=== PATIENT | male | born 1980 | race Caucasian/White ===

== ENCOUNTER 2020-01-05 15:52 | Emergency (ER) | payer BC ==
--- NOTE | 2020-01-05 15:55 | EDM.PDOC ---
ED HPI GENERAL MEDICAL PROBLEM - General Chief Complaint: Chest Pain Stated Complaint: chest pain Time Seen by Provider: 01/05/20 15:52 Source of Information: Reports: Patient, Old Records ([facility] chart/EMR), Other (Telephone consultation with Salina Gamboa PA-C, at [facility] with additional faxed limited records) History Limitations: Reports: No Limitations - History of Present Illness INITIAL COMMENTS - FREE TEXT/NARRATIVE: The patient drove himself to the emergency room via private automobile after initial evaluation by his regular provider, Salina Gamboa PA-C, at [facility], who did contact me prior to his arrival to this facility. No medications were given in that clinic prior to his arrival with EKG in that facility showing some possible nonspecific changes with his provider requesting further review in our emergency room. No further blood work , etc. have been conducted to this point. Patient does have a 3 week plus history of a daily 6-8/10 sharp retrosternal chest pain, which does radiate into the mid back and is associated with some dizziness. His symptoms usually last between 2 and 6 hours and are not improved with his daily Prilosec. Symptoms seem to be aggravated by his mask at work with the patient missing work both yesterday and today. The patient denies any chest pressure, heart flutter, orthostasis, orthopnea, diaphoresis, paresthesias, recent decreased exercise tolerance, or any other anginal-type symptoms. No recent history of abdominal pain, heartburn, nausea, diarrhea, melena, gross hematochezia, or any food intolerance, including fatty foods, etc.. He denies any gross hematuria, colic, or other UTI symptoms. The patient also denies any recent fever, cough, wheezing, dyspnea, etc.. Onset: Today, Gradual, Other (As above) Duration: Week(s):, Getting Worse Location: Reports: Chest, Back, Radiates to (As above). Denies: Head, Face, Neck, Abdomen, Upper Extremity, Left, Upper Extremity, Right Quality: Reports: Same as Previous Episode, Sharp Severity: Moderate Improves with: Reports: None Worsens with: Reports: None Context: Reports: Other (As above). Denies: Exercise, Sick Contact, Trauma Associated Symptoms: Reports: Confusion. Denies: Chest Pain, Cough, Diaphoresis , Fever/Chills, Headaches, Loss of Appetite, Malaise, Nausea/Vomiting, Shortness of Breath, Syncope, Weakness Treatments CORE INSERTER: Reports: Other (see below) (None) chest pain Pain Score (Numeric/FACES): 6 - Related Data Allergies Allergy/AdvReac Type Severity Reaction Status Date / Time No Known Allergies Allergy Verified 01/05/20 15:54 Home Meds: Home Meds Rivaroxaban [Xarelto] 20 mg PO DAILY 01/03/16 [History] Omeprazole Magnesium [Prilosec Otc] 20 mg PO DAILY 01/05/20 [History] Past Medical History HEENT History: Reports: Allergic Rhinitis. Denies: Cataract, Glaucoma, Hard of Hearing, Impaired Vision, Macular Degeneration, Otitis Media, Retinal Detachment Cardiovascular History: Reports: Blood Clots/VTE/DVT, Other (See Below). Denies : Afib, Arrhythmia, CAD, Cardiomyopathy, Heart Failure, Heart Murmur, High Cholesterol, Hypertension, MO, Syncope Other Cardiovascular History: History of PE as below with no known primary. He does not know his cholesterol status. Respiratory History: Reports: PE, Other (See Below). Denies: Asthma, Bronchitis , Recurrent, COPD, Intubation, Previous, Pneumonia, Recurrent, Pneumothorax, Sleep Apnea, TB Other Respiratory History: Right-sided PE on 07/26/15, which occurred about 912 months after his right wrist surgery in 2014 with current Xarelto therapy. Gastrointestinal History: Reports: Chronic Constipation, GERD, Other (See Below) . Denies: Celiac Disease, Cholelithiasis, Chronic Diarrhea, Colon Polyp, Diverticulosis, Fatty Liver, Fecal Incontinence, Gastritis, GI Bleed, Hepatitis , Helicobacter Pylori, Hiatal Hernia, Inflammatory Bowel Disease, Irritable Bowel Syndrome, Jaundice, Pancreatitis, PUD Other Gastrointestinal History: History of LFTs elevation in 2006 of unknown etiology possibly secondary to fatty liver? Genitourinary History: Reports: None. Denies: Acute Renal Failure, BPH, Chronic Renal Insuffiency, Renal Calculus, STD, Urinary Incontinence, UTI, Recurrent Musculoskeletal History: Reports: Arthritis, Other (See Below). 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 Neurological History: Reports: None. Denies: Cerebral Aneurysms, Concussion, CVA, Headaches, Chronic, Head Trauma, Migraines, MS, Parkinson's, Seizure, TIA, Vertigo Psychiatric History: Reports: None. Denies: Abuse, Victim of, ADD, ADHD, Addiction, Anxiety, Depression, Psych Hospitalization(s), PTSD, Suicide Attempt , Suicidal Ideation Endocrine/Metabolic History: Reports: Obesity/BMI 30+. Denies: Diabetes, Type I , Diabetes, Type II, Diabetes Mellitus, Type 3c, Hypothyroidism, IDDM Hematologic History: Reports: Other (See Below). 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 Denies: AIDS, HIV, SLE Oncologic (Cancer) History: Reports: None. Denies: Basal Cell Carcinoma, Colon , Hodgkin's Lymphoma, Leukemia, Lymphoma, Malignant Melanoma, Non-Hodgkin's Lymphoma, Prostate, Squamous Cell Carcinoma Dermatologic History: Reports: None. Denies: Eczema, Psoriasis - Infectious Disease History Infectious Disease History: Reports: Chicken Pox. Denies: C-Difficile, Helicobacter Pylori, Measles, Meningitis, Mononucleosis, MRSA, Mumps, Pertussis (Whooping Cough), Rheumatic Fever, Rubella, Scarlet Fever, Shingles, TB, VRE - Past Surgical History Head Surgeries/Procedures: Reports: None HEENT Surgical History: Reports: Adenoidectomy, Oral Surgery, Tonsillectomy, Other (See Below). Denies: Cataract Surgery, Detached Retina, Eye Surgery, Laser Surgery, LASIK, Myringotomy w Tube(s), Naso-Sinus Surgery Other HEENT Surgeries/Procedures: Tonsillectomy at age 8 on 02/13/89. Clover teeth extraction 4 in his early 20s. Cardiovascular Surgical History: Reports: None. Denies: Varicose Respiratory Surgical History: Reports: None. Denies: Thoracentesis GI Surgical History: Reports: Colonoscopy, EGD, Other (See Below). Denies: Appendectomy, Cholecystectomy, Hernia, Abdominal, Hernia, Inguinal, Hernia Repair/Other, Polypectomy Other GI Surgeries/Procedures: Colonoscopy in about 2005 and then on 01/05/16. EGD on 07/10/07 negative biopsies for H. pylori. Male Surgical History: Reports: Circumcision, Other (See Below). Denies: Vasectomy Other Male Surgeries/Procedures: Circumcision as an . Endocrine Surgical History: Reports: None. Denies: Thyroid Biopsy Neurological Surgical History: Reports: None. Denies: Discectomy, Laminectomy, Lumbar Spine, Sacral Spine, Spinal Fusion, Thoracic Spine, Vertebroplasty Musculoskeletal Surgical History: Reports: ORIF, Other (See Below). Denies: Arthroscopic Procedure, Carpal Tunnel, Ganglion Cyst, Joint Replacement, Shoulder Surgery Other Musculoskeletal Surgeries/Procedures:: ORIF of Kienbach deformity of the right wrist in 2015. Oncologic Surgical History: Reports: None Dermatological Surgical History: Reports: None - Past Imaging History Past Imaging History: Reports: Cardiac Echo (Negative echocardiogram on 08/30/15 with ejection fraction of 6065 percent.), CAT Scan (CTA of the chest on 02/26/17 , 07/28/15, and 07/26/15. CT of the abdomen and pelvis on 01/03/16, 04/10/06, and 04/03), Ultrasound (Abdominal ultrasound on 06/20/07) Social & Family History - Tobacco Use Smoking Status *Q: Never Smoker Tobacco Use Within Last Twelve Months: No Used Tobacco, but Quit: No Smoking Cessation Information Provided To Patient: No Second Hand Smoke Exposure: No Second Hand Smoke Education Provided: No - Living Situation & Occupation Living situation: Reports: Single (No children), with Family (Sister) Occupation: Employed ([employer]) ED ROS GENERAL - Review of Systems Review Of Systems: Comprehensive ROS is negative, except as noted in HPI. ED EXAM, GENERAL - Physical Exam Exam: See Below Exam Limited By: No Limitations General Appearance: Alert, WD/WN, No Apparent Distress, Anxious (Mild) Eye Exam: Bilateral Eye: EOMI, Normal Inspection (No nystagmus), PERRL Ears: Normal External Exam, Normal Canal, Hearing Grossly Normal, Normal TMs Nose: Normal Inspection, Normal Mucosa, No Blood Throat/Mouth: Normal Inspection, Normal Lips, Normal Teeth, Normal Gums, Normal Oropharynx, Normal Voice, No Airway Compromise. No: Dysphagia, Perioral Cyanosis Head: Atraumatic, Normocephalic. No: Facial Swelling, Facial Tenderness, Sinus Tenderness Neck: Normal Inspection, Supple, Non-Tender, Full Range of Motion. No: Carotid Bruit, Lymphadenopathy (L), Lymphadenopathy (R), Thyromegaly Respiratory/Chest: No Respiratory Distress, Lungs Clear, Normal Breath Sounds, No Accessory Muscle Use, Chest Non-Tender. No: Pleural Rub, Retractions Cardiovascular: Normal Peripheral Pulses, Regular Rate, Rhythm, No Edema, No Gallop, No JVD, No Murmur, No Rub. No: Gallop/S3, Gallop/S4, Friction Rub Peripheral Pulses: 2+: Radial (L), Radial (R), Dorsalis Pedis (L), Dorsalis Pedis (R) GI/Abdominal: Normal Bowel Sounds, Soft, Non-Tender, No Organomegaly, No Distention, No Abnormal Bruit, No Mass, Pelvis Stable, Other (Obese). No: Guarding (Male) Exam: Deferred Rectal (Males) Exam: Deferred Back Exam: Normal Inspection, Full Range of Motion. No: CVA Tenderness (L), CVA Tenderness (R), Muscle Spasm Extremities: Normal Inspection, Normal Range of Motion, Non-Tender, No Pedal Edema, Normal Capillary Refill. No: Anusha's Sign Neurological: Alert, Oriented, CN II-XII Intact, Normal Cognition, Normal Gait, Normal Reflexes (Negative Babinski's), No Motor/Sensory Deficits Psychiatric: Anxious (Mild). No: Depressed Mood Skin Exam: Warm, Dry, Intact, Normal Color, No Rash. No: Diaphoretic, Ecchymosis, Petechiae, Wound/Incision Lymphatic: No Adenopathy EKG INTERPRETATION EKG Date: 01/05/20 Time: 15:48 Rhythm: NSR Rate (Beats/Min): 71 [place]: Normal P-Wave: Enlarged (Mild Diffuse biphasic P waves with extreme poor R-wave progression in the anterior leads) QRS: Normal (0.09 seconds with some repolarization changes) ST-T: Normal (T-wave inversion in lead V1 with resolution of previous borderline T-wave inversion in lead V3 and T-wave inversion in lead 3) QT: Normal NV/PQ Interval: 0.16 seconds Comparison: Change From Previous EKG (As above since EKG earlier today at the [facility] at 14:34 hours) EKG Interpretation Comments: 1. No acute ischemic changes 2. Repolarization changes Course - Vital Signs Last Recorded V/S: Last Vital Signs Temp 36.4 C 01/05/20 15:57 Pulse 71 01/05/20 15:57 Resp 16 01/05/20 15:57 BP 150/87 H 01/05/20 15:57 Pulse Ox 97 01/05/20 15:57 Vital Signs - 24 hr 01/05/20 15:57 Temperature [ 36.4 C Temporal] Pulse, 71 Peripheral [ Right Pulse Oximetry] Respiratory 16 Rate Blood Pressure 150/87 H [Right Upper Arm] O2 Sat by Pulse 97 Oximetry - Orders/Labs/Meds Orders: Active Orders 24 hr Category Date Time Status Cardiac Monitoring [RC] . DIRECTED Care 01/05/20 15:55 Active EKG Documentation Completion [RC] ASDIRECTED Care 01/05/20 15:55 Active Oxygen Therapy, ED [RC] PRN Care 01/05/20 15:55 Active Peripheral IV Care [RC] . DIRECTED Care 01/05/20 15:55 Active Pulse Oximetry [RC] CONTINUOUS Care 01/05/20 15:55 Active Up With Assistance [RC] PFP Care 01/05/20 15:55 Active Vital Signs [RC] PFP Care 01/05/20 15:55 Active Nothing per Oral Now Diet [DIET] Diet 01/05/20 Breakfast Active Chest 1V Frontal [CR] Stat Exams 01/05/20 15:55 Taken Sodium Chloride 0.9% [Saline Flush] Med 01/05/20 15:55 Active 10 ml FLUSH ASDIRECTED PRN Obtain Past Medical Record [OM.PC] Urgent Oth 01/05/20 15:55 Active Peripheral IV Insertion Adult [OM.PC] Stat Oth 01/05/20 15:55 Ordered Resuscitation Status Stat Resus Stat 01/05/20 15:55 Ordered Medication Orders Sodium Chloride (Saline Flush) 10 ml FLUSH ASDIRECTED PRN PRN Reason: Keep Vein Open Last Admin: 01/05/20 16:15 Dose: 10 ml Labs: Laboratory Tests 01/05/20 01/05/20 01/05/20 Range/Units 16:05 16:05 16:05 WBC 6.7 (4.0-10.2) K/uL RBC 5.24 (4.33-5.41) M/uL Hgb 16.4 (13.1-16.8) g/dL Hct 46.1 (39.0-49.0) % MCV 88.0 (84.0-98.0) fL MCH 31.3 (28.2-33.3) pg MCHC 35.6 (31.7-36.0) g/dL RDW 12.6 (11.2-14.1) % Plt Count 236 (150-350) K/uL Neut % (Auto) 62.3 (45.0-80.0) % Lymph % (Auto) 26.5 (10.0-50.0) % [place] % (Auto) 9.0 (2.0-14.0) % Eos % (Auto) 1.7 (0.0-5.0) % Baso % (Auto) 0.5 (0.0-2.0) % Neut # (Auto) 4.15 (1.40-7.00) K/uL Lymph # (Auto) 1.76 (0.50-3.50) K/uL [place] # (Auto) 0.60 (0.00-1.00) K/uL Eos # (Auto) 0.11 (0.00-0.50) K/uL Baso # (Auto) 0.03 (0.00-0.20) K/uL PT 11.4 (9.5-12.0) SEC INR 1.1 APTT 30.7 (24.5-32.8) SEC D-Dimer, Quantitative < 100 (0-400) ng/mL Sodium (136-145) mmol/L Potassium (3.5-5.1) mmol/L Chloride (98-107) mmol/L Carbon Dioxide (21.0-32.0) mmol/L BUN (7-18) mg/dL Creatinine (0.51-1.17) mg/dL Est Cr Clr Drug Dosing mL/min Estimated GFR (MDRD) mL/min Glucose (74-106) mg/dL Lactic Acid (0.4-2.0) mmol/L Uric Acid (2.6-7.2) mg/dL Calcium (8.5-10.1) mg/dL Magnesium (1.8-2.4) mg/dL Total Bilirubin (0.2-1.0) mg/dL AST (15-37) U/L ALT (12-78) U/L Alkaline Phosphatase (46-116) IU/L Creatine Kinase (26-308) U/L Creatine Kinase Index (0.0-2.5) % CK-MB (CK-2) (0.00-3.60) ng/mL Troponin I (0.000-0.056) ng/mL NT-Pro-B Natriuret Pep (0-125) pg/mL Total Protein (6.4-8.2) g/dL Albumin (3.4-5.0) g/dL TSH, Ultra Sensitive (0.358-3.740) mIU/mL 01/05/20 01/05/20 Range/Units 16:05 16:05 WBC (4.0-10.2) K/uL RBC (4.33-5.41) M/uL Hgb (13.1-16.8) g/dL Hct (39.0-49.0) % MCV (84.0-98.0) fL MCH (28.2-33.3) pg MCHC (31.7-36.0) g/dL RDW (11.2-14.1) % Plt Count (150-350) K/uL Neut % (Auto) (45.0-80.0) % Lymph % (Auto) (10.0-50.0) % [place] % (Auto) (2.0-14.0) % Eos % (Auto) (0.0-5.0) % Baso % (Auto) (0.0-2.0) % Neut # (Auto) (1.40-7.00) K/uL Lymph # (Auto) (0.50-3.50) K/uL [place] # (Auto) (0.00-1.00) K/uL Eos # (Auto) (0.00-0.50) K/uL Baso # (Auto) (0.00-0.20) K/uL PT (9.5-12.0) SEC INR APTT (24.5-32.8) SEC D-Dimer, Quantitative (0-400) ng/mL Sodium 142 (136-145) mmol/L Potassium 4.0 (3.5-5.1) mmol/L Chloride 105 (98-107) mmol/L Carbon Dioxide 26.1 (21.0-32.0) mmol/L BUN 17 (7-18) mg/dL Creatinine 0.96 (0.51-1.17) mg/dL Est Cr Clr Drug Dosing 132.77 mL/min Estimated GFR (MDRD) > 60 mL/min Glucose 118 H (74-106) mg/dL Lactic Acid 1.5 (0.4-2.0) mmol/L Uric Acid 6.8 (2.6-7.2) mg/dL Calcium 8.9 (8.5-10.1) mg/dL Magnesium 1.9 (1.8-2.4) mg/dL Total Bilirubin 0.6 (0.2-1.0) mg/dL AST 21 (15-37) U/L ALT 50 (12-78) U/L Alkaline Phosphatase 73 (46-116) IU/L Creatine Kinase 167 (26-308) U/L Creatine Kinase Index 0.5 (0.0-2.5) % CK-MB (CK-2) 0.80 (0.00-3.60) ng/mL Troponin I 0.001 (0.000-0.056) ng/mL NT-Pro-B Natriuret Pep 47 (0-125) pg/mL Total Protein 7.1 (6.4-8.2) g/dL Albumin 3.7 (3.4-5.0) g/dL TSH, Ultra Sensitive 1.179 (0.358-3.740) mIU/mL Meds: Medications Generic Name Dose Route Start Last Admin Trade Name Freq PRN Reason Stop Dose Admin Sodium Chloride 10 ml 01/05/20 15:55 01/05/20 16:15 Saline Flush FLUSH 10 ml ASDIRECTED PRN Administration Keep Vein Open Discontinued Medications Generic Name Dose Route Start Last Admin Trade Name Freq PRN Reason Stop Dose Admin Famotidine 40 mg 01/05/20 15:55 01/05/20 16:15 Pepcid IVPUSH 01/05/20 15:56 40 mg ONETIME ONE Administration - Radiology Interpretation Free Text/Narrative:: Communication Lecturer shows normal sinus rhythm in the 60s to 70s with no ectopy or arrhythmia. Chest X-ray, portable, report was normal with borderline COPD and possible pulmonary hypertension by my initial evaluation Departure - Departure Time of Disposition: 17:20 Disposition: Home, Self-Care 01 Condition: Good Clinical Impression: Peptic reflux disease, Elevated blood pressure reading, Obesity (BMI 30-39.9) Chest pain Qualifiers: Chest pain type: precordial pain Qualified Code(s): R07.2 - Precordial pain Instructions: Heart-Healthy Eating Plan, [id number], Nonspecific Chest Pain, Adult, [id number] Referrals: Marga Esteban, TYPING OFFICE WORKER [Primary Care Provider] - Forms: ED Department Discharge Additional Instructions: 1. Follow up with your regular provider, Salina Gamboa PA-C, at [facility] in [place], tomorrow as directed for reevaluation and repeat EKG, CBC, a basic metabolic panel, troponin I, d-dimer, BNP, CK, and CK-MB. 2. Discuss recommended Cardiolite stress test in this facility with your regular provider at that time 3. Strict fall/injury precautions with 50% maximum exercise restrictions until released by your regular provider 4. Work excuse- See Form 5. Immediately after this visit verify that your cellular telephone's voicemail has been activated and is empty. Also verify that your home telephone's answering machine is operating properly and has space to receive messages. Note that it is sometimes necessary for us to be able to contact you at a later date to discuss your medical care. 6. Please remember that we are ALWAYS here for you and want to answer any questions you may have. Feel free to call the hospital any time and we call you back RONA. 7. Weight loss in moderation as discussed with consideration of fasting lipid panel in the near future by your regular provider. Sepsis Event Note (ED) - Focused Exam Vital Signs: Vital Signs Temp Pulse Resp BP Pulse Ox 01/05/20 15:57 36.4 C 71 16 150/87 H 97 - Problem List & Annotations (1) Chest pain SNOMED Code(s): 99044054 Code(s): R07.9 - CHEST PAIN, UNSPECIFIED Status: Acute Priority: High Current Visit: Yes Annotation/Comment:: Three-week history of nonspecific chest pain as above. His regular provider was concerned about a possible return of his PE, however his d-dimer was normal. Has been compliant with his current Xarelto therapy. The patient wished to consider recommended Cardiolite stress test in this facility, and he will discuss this further with his regular provider tomorrow with repeat EKG and blood work as per discharge instructions. Work excuse and activity restrictions were discussed with the patient having missed work since 01/03. Cardiology consultation depending on his clinical course. Qualifiers: Chest pain type: precordial pain Qualified Code(s): R07.2 - Precordial pain (2) Peptic reflux disease SNOMED Code(s): 186440917 Code(s): K21.9 - GASTRO-ESOPHAGEAL REFLUX DISEASE WITHOUT ESOPHAGITIS Status: Chronic Priority: Medium Current Visit: Yes Annotation/Comment:: Otherwise stable by history. Note previous negative EGD and colonoscopies as above. (3) Elevated blood pressure reading SNOMED Code(s): 26528303 Code(s): R03.0 - ELEVATED BLOOD-PRESSURE READING, W/O DIAGNOSIS OF HTN Status: Acute Priority: Medium Current Visit: Yes Onset Date: 01/05/20 Annotation/Comment:: Mildly elevated blood pressure today. Mild anxious component with no previous history of hypertension. Observe for now with close observation by his regular provider. (4) Obesity (BMI 30-39.9) SNOMED Code(s): 096122507, 935474508 Code(s): E66.9 - OBESITY, UNSPECIFIED Status: Chronic Priority: Medium Current Visit: Yes Annotation/Comment:: Weight Loss in moderation advisable. Patient was given dietary information at discharge. Lipid panel recommended as per discharge instructions. - Problem List Review Problem List Initiated/Reviewed/Updated: Yes - My Orders Last 24 Hours: My Active Orders 01/05/20 15:55 Cardiac Monitoring [RC] . DIRECTED EKG Documentation Completion [RC] ASDIRECTED Oxygen Therapy, ED [RC] PRN Peripheral IV Care [RC] . DIRECTED Pulse Oximetry [RC] CONTINUOUS Up With Assistance [RC] PFP Vital Signs [RC] PFP Chest 1V Frontal [CR] Stat Sodium Chloride 0.9% [Saline Flush] 10 ml FLUSH ASDIRECTED PRN Obtain Past Medical Record [OM.PC] Urgent Peripheral IV Insertion Adult [OM.PC] Stat Resuscitation Status Stat 01/05/20 Breakfast Nothing per Oral Now Diet [DIET] - Assessment/Plan Last 24 Hours: My Active Orders 01/05/20 15:55 Cardiac Monitoring [RC] . DIRECTED EKG Documentation Completion [RC] ASDIRECTED Oxygen Therapy, ED [RC] PRN Peripheral IV Care [RC] . DIRECTED Pulse Oximetry [RC] CONTINUOUS Up With Assistance [RC] PFP Vital Signs [RC] PFP Chest 1V Frontal [CR] Stat Sodium Chloride 0.9% [Saline Flush] 10 ml FLUSH ASDIRECTED PRN Obtain Past Medical Record [OM.PC] Urgent Peripheral IV Insertion Adult [OM.PC] Stat Resuscitation Status Stat 01/05/20 Breakfast Nothing per Oral Now Diet [DIET] Assessment:: As above Plan: As above. Extensive precautions were given to the patient, who is in agreement with the treatment plan. See Patient Instructions for further treatment and plan.
[2020-01-05] MEDS: Sodium Chloride 0.9% 10 ML Syringe FLUSH PRN (16:15)
[2020-01-05] MEDS: Famotidine 20 MG/2 ML SDV IVPUSH ONE (16:15)
[2020-01-05 16:41] LABS: CHLORIDE,CL 105 mmol/L (98-107); SODIUM,NA 142 mmol/L (136-145)
[2020-01-05 16:49] LABS: PTT,PARTIAL THROMBOPLSTIN TIME 30.7 SEC (24.5-32.8)
[2020-01-05 17:46] VITALS: BP 122/74; PULSE 65
== END 2020-01-05 17:25 | disposition home or self-care (01) ==
LOC: LL.ED 15:52
DX: K21.9 Gastro-esophageal reflux disease without esophagitis (principal); R03.0 Elevated blood-pressure reading, without diagnosis of hypertension; E66.9 Obesity, unspecified; Z68.35 Body mass index [BMI] 35.0-35.9, adult; Z79.899 Other long term (current) drug therapy
CPT/HCPCS: 36415; 71045; 80053; 82550; 82553; 83605; 83735; 83880; 84443; 84484; 84550; 85025; 85379; 85610; 85730; 93005; 96374; 99285-25; J3490

== ENCOUNTER 2020-03-17 10:22 | Day surgery (SDC) | payer BC ==
[~2020-03-17 10:22] MED LIST: Sodium Chloride 0.9% 10 ML Syringe FLUSH PRN
[2020-03-17] MEDS: Lactated Ringers 1,000 ML IV SCH (11:03)
[2020-03-17] MEDS ORDERED: Propofol 200 MG/20 ML SDV ONE ×2 (11:46→11:52)
[2020-03-17] MEDS ORDERED: Midazolam 1 MG/ML 2 ML SDV ONE ×2 (11:46→11:52)
[2020-03-17] MEDS ORDERED: Ketamine 500 mg/10 ML MDV ONE ×2 (11:46→11:52)
--- NOTE | 2020-03-17 11:52 | PCM.PN ---
- General Info Date of Service: 03/17/20 - Review of Systems Systems Review Comment:: 39-year-old male referred for EGD and colonoscopy. He has increasing symptoms of GERD. He has also had a change in bowel habits with episodes of constipation and diarrhea as well as severe lower abdominal pain and rectal bleeding. I have discussed the proposed colonoscopy and EGD with the patient. Risks such as but not limited to bleeding and GI injury reviewed. He agrees to proceed. His recent history and physical is reviewed and no significant changes are noted. - Patient Data Vitals - Most Recent: Last Vital Signs Temp 97.9 F 03/17/20 10:56 Pulse 62 03/17/20 10:56 Resp 18 03/17/20 10:56 BP 138/77 03/17/20 10:56 Pulse Ox 97 03/17/20 10:56 Weight - Most Recent: 134.717 kg Med Orders - Current: Current Medications Lactated Ringer's (Ringers, Lactated) 1,000 mls @ 125 mls/hr IV ASDIRECTED LESLIE Last Admin: 03/17/20 11:03 Dose: 125 mls/hr Documented by: Sodium Chloride (Saline Flush) 10 ml FLUSH ASDIRECTED PRN PRN Reason: Keep Vein Open Discontinued Medications Ketamine HCl (Ketalar) Confirm Administered Dose 500 mg .ROUTE .STK-MED ONE Stop: 03/17/20 11:47 Midazolam HCl (Versed 1 Mg/Ml) Confirm Administered Dose 2 mg .ROUTE .STK-MED ONE Stop: 03/17/20 11:47 Propofol (Diprivan 20 Ml) Confirm Administered Dose 400 mg .ROUTE .STK-MED ONE Stop: 03/17/20 11:47 Sepsis Event Note - Focused Exam Vital Signs: Vital Signs Temp Pulse Resp BP Pulse Ox 03/17/20 10:56 97.9 F 62 18 138/77 97 - Problem List Review Problem List Initiated/Reviewed/Updated: Yes - My Orders Last 24 Hours: My Active Orders 03/17/20 10:15 Patient Status [ADT] Routine Peripheral IV Care [RC] . DIRECTED Verify Patient Consent Obtain [RC] ASDIRECTED Lactated Ringers [Ringers, Lactated] 1,000 ml IV ASDIRECTED Sodium Chloride 0.9% [Saline Flush] 10 ml FLUSH ASDIRECTED PRN Peripheral IV Insertion Adult [OM.PC] Routine - Assessment Assessment:: GERD Change in bowel habits with rectal bleeding - Plan Plan:: EGD and colonoscopy
--- NOTE | 2020-03-17 12:51 | PCM.OPNOTE ---
- General Post-Op/Procedure Note Date of Surgery/Procedure: 03/17/20 Operative Procedure(s): EGD with Biopsy and Colonoscopy with Polypectomy and Biopsy Findings: Normal appearing upper endoscopy Splenic Flexure colon polyp Colon and Terminal Ileum otherwise normal Pre Op Diagnosis: GERD. Change in Bowel Habits Post-Op Diagnosis: Normal upper endoscopy. Colon Polyp Anesthesia Technique: MAC Primary Surgeon: Ha Hobbs Pathology: Biopsies of Duodenum, Stomach, and Esophagus Biopsies of terminal ileum, and colon and colon polyp EBL in mLs: 3 Complications: None Condition: Good
[2020-03-17 13:22] VITALS: BP 125/71; PULSE 64
--- NOTE | 2020-03-17 16:59 | OR ---
Date of Procedure: 03/17/2020 PREOPERATIVE DIAGNOSIS: Gastroesophageal reflux disease and change in bowel habits. POSTOPERATIVE DIAGNOSIS: Hiatal hernia and colon polyp. OPERATIONS PERFORMED: 1. Esophagogastroduodenoscopy with biopsy. 2. Colonoscopy with biopsy and polypectomy. INDICATIONS FOR SURGERY: This 39-year-old male has been having symptoms of GERD, which seem to be worsening. He also has been having recent change in bowel pattern with some severe lower abdominal pain, alternating diarrhea and constipation, and blood in his stool. He is referred for EGD and colonoscopy. FINDINGS: On upper endoscopy, the patient's esophagus appeared normal. There was a small hiatal hernia with mild widening of the GE junction, but no visible signs of inflammation were noted. The remainder of the stomach and duodenum appeared normal. On colonoscopy, the colon mucosa appeared normal. There was a single polyp noted at the splenic flexure. This was an 8 mm sessile polyp. The terminal ileum also appeared normal. No sign of bleeding was noted during this exam. DESCRIPTION OF PROCEDURE: The patient was taken to the operating room. He was given intravenous sedation and his throat was topically anesthetized. The Olympus gastroscope was advanced through a mouth guard into the oral cavity. This was then advanced under direct visualization to the oropharynx and into the esophagus. It was then advanced under direct visualization through the stomach and into the duodenum, where examination to the third portion was performed. Because of the patient's symptoms, random biopsies of the duodenum were taken. After the duodenum was fully examined, the scope was withdrawn back into the stomach, where full examination including retroflexed examination of the fundus was carried out. Random biopsies of the antrum were taken to rule out H. pylori. The GE junction was also carefully examined, and because of the patient's symptoms, biopsies of the distal esophagus were taken. The scope was then removed, and attention was turned to colonoscopy. Digital rectal exam was performed showing no rectal masses. The Olympus colonoscope was inserted into the rectum. Retroflexed examination of the rectal canal was performed. The scope was then carefully advanced under direct visualization through the entire length of the colon until the cecum was reached. Cecal acquisition was confirmed by noting the normal internal cecal anatomy including the appendiceal orifice and the ileocecal valve. The ileocecal valve was cannulated and the terminal ileum was also examined and appeared normal. Random biopsies of the terminal ileum were taken. The scope was then slowly withdrawn sequentially re-examining the colonic segments, and as the scope was withdrawn, random biopsies of the right and left colon were taken. During withdrawal of the scope, the above-described splenic flexure polyp was identified. This was removed with a cautery snare and retrieved. After the examination had been completed and with no sign of any complication, the scope was removed and the patient was taken from the operating room in satisfactory condition. ESTIMATED BLOOD LOSS: 3 mL. COMPLICATIONS: None. PROGNOSIS: Good. ARIANA Hobbs MD /[id number]
== END 2020-03-17 13:48 | disposition home or self-care (01) ==
LOC: LL.SDS 10:22
PROVIDERS: ATTEND Surgery
DX: K63.5 Polyp of colon (principal); K21.0 Gastro-esophageal reflux disease with esophagitis; I89.0 Lymphedema, not elsewhere classified; D68.51 Activated protein C resistance; D68.61 Antiphospholipid syndrome; E66.01 Morbid (severe) obesity due to excess calories; Z79.899 Other long term (current) drug therapy; Z68.34 Body mass index [BMI] 34.0-34.9, adult
CPT/HCPCS: 00813; J2250; J2704; J7120

== ENCOUNTER 2024-10-13 10:59 | Emergency (ER) | payer BC ==
[2024-10-13 11:29] LABS: BASOPHILS ABSOLUTE AUTO 0.03 K/uL (0.00-0.20); BASOPHILS PERCENT AUTO 0.4 % (0.0-2.0); EOSINOPHILS ABSOLUTE AUTO 0.25 K/uL (0.00-0.50); EOSINOPHILS PERCENT AUTO 3.4 % (0.0-5.0); HEMATOCRIT 47.5 % (39.0-49.0); IMMATURE GRAN ABSOLUTE AUTO 0.07 10^3/uL (0.00-0.04); LYMPHOCYTES ABSOLUTE AUTO 2.47 K/uL (0.50-3.50); LYMPHOCYTES PERCENT AUTO 33.7 % (10.0-50.0); MEAN CORPUSCULAR HEMOGLOBIN 30.7 pg (28.2-33.3); MEAN CORPUSCULAR HGB CONC 35.8 g/dL (31.7-36.0); MEAN CORPUSCULAR VOLUME 85.7 fL (84.0-98.0); MONOCYTES ABSOLUTE AUTO 0.73 K/uL (0.00-1.00); NEUTROPHILS ABSOLUTE AUTO 3.77 K/uL (1.40-7.00); NEUTROPHILS PERCENT AUTO 51.5 % (45.0-80.0); PLATELET COUNT,PLT 225 K/uL (150-350); RED BLOOD CELL COUNT 5.54 M/uL (4.33-5.41); RED CELL DISTRIBUTION WIDTH 11.8 % (11.2-14.1); WHITE BLOOD CELL COUNT,WBC 7.3 K/uL (4.0-10.2)
[2024-10-13] MEDS: Diltiazem 25 MG/5 ML SDV IVPUSH ONE (11:32)
[2024-10-13] MEDS ORDERED: Sodium Chloride 0.9% 10 ML Syringe FLUSH PRN ×2 (11:50→12:52)
[2024-10-13 11:58] LABS: ALANINE AMINOTRANSFERASE,ALT 64 U/L (12-78); ALBUMIN 3.6 g/dL (3.4-5.0); ALKALINE PHOSPHATASE 89 IU/L (46-116); ANION GAP 7.9 meq/L (7-15); ASPARTATE AMNIOTRANSFERASE,AST 26 U/L (15-37); BILIRUBIN TOTAL 0.5 mg/dL (0.2-1.0); BLOOD UREA NITROGEN,BUN 21 mg/dL (7-18); CARBON DIOXIDE,CO2 25.1 mmol/L (21.0-32.0); CHLORIDE,CL 105 mmol/L (98-107); CREATININE 0.98 mg/dL (0.51-1.17); GLUCOSE RANDOM 108 mg/dL (70-99); POTASSIUM,K 4.3 mmol/L (3.5-5.1); PRO B-TYPE NATRIUR PEPT,BNPPRO 529 pg/mL (0-125); SODIUM,NA 138 mmol/L (136-145)
[2024-10-13 11:59] LABS: ESTIMATED GFR 99 mL/min (>=60)
[2024-10-13 12:13] LABS: INR 1.1 (0.9-1.1); PROTHROMBIN TIME 10.6 SEC (9.0-11.1); PTT,PARTIAL THROMBOPLSTIN TIME 29.7 SEC (23.8-34.4)
[2024-10-13] MEDS: Diltiazem 120 MG Cap.CD PO SCH (12:58)
[2024-10-13] MEDS: Sodium Chloride 0.9% 1,000 ML IV SCH (14:28)
[2024-10-13 19:04] VITALS: BP 118/84; PULSE 71
== END 2024-10-13 17:00 | disposition home or self-care (01) ==
LOC: LL.ED 10:59
DX: I48.91 Unspecified atrial fibrillation (principal); R07.9 Chest pain, unspecified; E66.9 Obesity, unspecified; Z79.01 Long term (current) use of anticoagulants; Z79.2 Long term (current) use of antibiotics
CPT/HCPCS: 36415; 71045; 80053; 83605; 83880; 84484; 85025; 85610; 85730; 93005; 93010; 96361; 96374; 99284; 99285-25; A9270-GY; J3490; J7030

== ENCOUNTER 2025-02-10 09:51 | Emergency (ER) | payer MEDICAID ==
[2025-02-10 10:03] LABS: BASOPHILS ABSOLUTE AUTO 0.02 K/uL (0.00-0.20); BASOPHILS PERCENT AUTO 0.3 % (0.0-2.0); EOSINOPHILS ABSOLUTE AUTO 0.23 K/uL (0.00-0.50); EOSINOPHILS PERCENT AUTO 3.8 % (0.0-5.0); IMMATURE GRAN ABSOLUTE AUTO 0.05 10^3/uL (0.00-0.04); IMMATURE GRAN PERCENT AUTO 0.8 % (0.0-0.4); LYMPHOCYTES ABSOLUTE AUTO 1.83 K/uL (0.50-3.50); LYMPHOCYTES PERCENT AUTO 30.0 % (10.0-50.0); MONOCYTES ABSOLUTE AUTO 0.42 K/uL (0.00-1.00); MONOCYTES PERCENT AUTO 6.9 % (2.0-14.0); NEUTROPHILS ABSOLUTE AUTO 3.56 K/uL (1.40-7.00); NEUTROPHILS PERCENT AUTO 58.2 % (45.0-80.0); PLATELET COUNT,PLT 224 K/uL (150-350); RED BLOOD CELL COUNT 5.19 M/uL (4.33-5.41); RED CELL DISTRIBUTION WIDTH 11.8 % (11.2-14.1); WHITE BLOOD CELL COUNT,WBC 6.1 K/uL (4.0-10.2)
[2025-02-10] MEDS: Ondansetron 4 MG/2 ML SDV ONE (10:18)
[2025-02-10] MEDS: Sodium Chloride 0.9% 10 ML Syringe FLUSH PRN (10:19)
[2025-02-10] MEDS: Ondansetron 4 MG/2 ML SDV IVPUSH ONE (10:19)
[2025-02-10 10:35] LABS: ALANINE AMINOTRANSFERASE,ALT 57 U/L (12-78); ASPARTATE AMNIOTRANSFERASE,AST 25 U/L (15-37); BILIRUBIN TOTAL 0.4 mg/dL (0.2-1.0); BLOOD UREA NITROGEN,BUN 15 mg/dL (7-18); CARBON DIOXIDE,CO2 25.1 mmol/L (21.0-32.0); CHLORIDE,CL 103 mmol/L (98-107); CREATININE 1.19 mg/dL (0.51-1.17); GLUCOSE RANDOM 155 mg/dL (70-99); POTASSIUM,K 4.1 mmol/L (3.5-5.1); PRO B-TYPE NATRIUR PEPT,BNPPRO 89 pg/mL (0-125); PROTEIN TOTAL,TP 6.9 g/dL (6.4-8.2); SODIUM,NA 137 mmol/L (136-145)
[2025-02-10 10:36] LABS: ESTIMATED GFR 78 mL/min (>=60)
[2025-02-10] MEDS: methylPREDNISolone Sodium Succinate 40 MG/1 ML SDV IVPUSH ONE (12:48)
[2025-02-10] MEDS: Ketorolac 15 MG/ML SDV IVPUSH ONE (12:52)
[2025-02-10 13:44] VITALS: BP 116/74; PULSE 52
== END 2025-02-10 14:02 | disposition home or self-care (01) ==
LOC: LL.ED 09:51
DX: E86.0 Dehydration (principal); Z79.899 Other long term (current) drug therapy
CPT/HCPCS: 36415; 71045; 80053; 83605; 83735; 83880; 84484; 85025; 85379; 87426-QW; 93005; 96361; 96374; 96375; 99285-25; A9270-GY; J2405; J2470; J2919; J7030